=== PATIENT | female | born 1970 | race Caucasian/White ===

== ENCOUNTER → 2019-05-18 | Emergency (ER) | payer OTHER ==
[~2019-05-18] VITALS: Ht 152.4 cm; Wt 68.0 kg
== END | disposition home or self-care (01) ==
LOC: ER 14:34
DX: G45.8 Other transient cerebral ischemic attacks and related syndromes (principal); R20.0 Anesthesia of skin; R42 Dizziness and giddiness
CPT/HCPCS: 70551

== ENCOUNTER 2019-05-21 14:08 | Outpatient (CLI) | payer OTHER | END 2019-05-21 15:00 | disposition home or self-care (01) | LOC: NUCLEAR 14:08 | DX: I67.89 Other cerebrovascular disease (principal) ==